=== PATIENT | female | born 1970 | race Caucasian/White ===

== ENCOUNTER 2020-08-27 11:44 | Emergency (ER) | payer BC, OTHER ==
[2020-08-27 11:55] VITALS: BP 143/92; PULSE 80; TEMP 98.3; BMI 30.9
[2020-08-27 13:20] LABS: EPI CELLS 4 /uL (0-25.1); HYALINE CASTS 0 /uL (0-3.1); PH,URINE 6.5 (5.0-8.0); URINE APPEARANCE CLEAR; URINE BACTERIA 34 /uL (0-1359); URINE BILIRUBIN NEGATIVE (NEGATIVE); URINE COLOR YELLOW; URINE GLUCOSE (UA) NEGATIVE (NEGATIVE); URINE KETONE NEGATIVE (NEGATIVE); URINE LEUK ESTERASE TRACE (NEGATIVE); URINE NITRITE NEGATIVE (NEGATIVE); URINE PROTEIN NEGATIVE (NEGATIVE); URINE RBC 3 /uL (0-23.9); URINE UROBILINOGEN 0.2 mg/dL (0.2-1.0); URINE WBC 15 /uL (0-25.8)
== END 2020-08-27 15:35 | disposition home or self-care (01) ==
LOC: JER 11:44
DX: N93.8 Other specified abnormal uterine and vaginal bleeding (principal)
CPT/HCPCS: 76856-TC; 81003; 87086; 99284-25

== ENCOUNTER 2022-02-09 05:08 | Day surgery (SDC) | payer BC, OTHER ==
[2022-02-07 15:18] VITALS: BMI 27.9
[2022-02-09 09:10] VITALS: TEMP 98
[2022-02-09 09:46] VITALS: BP 146/67; PULSE 60; RESP 16
== END 2022-02-09 09:47 | disposition home or self-care (01) ==
LOC: JASU-ENDO 05:08
PROVIDERS: ATTEND Internal Medicine Gastroenterology
PROC: 0DB78ZX Excision of Stomach, Pylorus, Via Natural or Artificial Opening Endoscopic, Diagnostic (ICD-10-PCS; principal; 2022-02-09 08:30)
DX: K29.70 Gastritis, unspecified, without bleeding (principal)
CPT/HCPCS: 88305-TC; 88341-TC; 88342-TC

== ENCOUNTER 2022-02-21 04:45 | Day surgery (SDC) | payer BC, OTHER ==
[2022-02-17 10:06] VITALS: BMI 30.5
[2022-02-21 08:36] VITALS: TEMP 98
[2022-02-21 09:33] VITALS: BP 108/62; PULSE 67; RESP 18
== END 2022-02-21 09:22 | disposition home or self-care (01) ==
LOC: JASU-ENDO 04:45
PROVIDERS: ATTEND Internal Medicine Gastroenterology
PROC: 0DBM8ZX Excision of Descending Colon, Via Natural or Artificial Opening Endoscopic, Diagnostic (ICD-10-PCS; 2022-02-21)
PROC: 0DBH8ZX Excision of Cecum, Via Natural or Artificial Opening Endoscopic, Diagnostic (ICD-10-PCS; principal; 2022-02-21 08:00)
DX: Z12.11 Encounter for screening for malignant neoplasm of colon (principal); K64.8 Other hemorrhoids
CPT/HCPCS: 88305-TC

== ENCOUNTER 2022-05-15 10:53 | Emergency (ER) | payer BC, OTHER ==
[2022-05-15 11:25] VITALS: BP 121/80; PULSE 90; RESP 18; TEMP 99.2; BMI 29.2
== END 2022-05-15 14:58 | disposition home or self-care (01) ==
LOC: JER 10:53
DX: B34.9 Viral infection, unspecified (principal)
CPT/HCPCS: 0241U-QW; 71046-TC-FY; 99284-25